=== PATIENT | female | born 1950 | race Caucasian/White ===

== ENCOUNTER 2018-08-26 10:03 | Day surgery (SDC) | payer MEDICARE, BC ==
[2018-08-26] MEDS ORDERED: Midazolam HCl 2 mg/2 ml Vial ONE (11:32)
[2018-08-26] MEDS ORDERED: PROPOFOL 200 MG/20 ML VIAL ONE (12:56)
--- NOTE | 2018-08-26 13:32 | MRI ---
BRAIN MRI WITHOUT CONTRAST: INDICATIONS: Paresthesia and pain of the upper extremity. FINDINGS: The ventricular system is normal in size. There is no acute territorial infarction, intracranial mas s effect, or midline shift. There are scattered foci of signal alteration in the bilateral cerebral white matter, nonspecific. No intracranial hemorrhagic susceptibility. There is a partially empty s antonio. Skull base flow voids are patent. IMPRESSION: Nonspecific mild foci of signal abnormality in the bilateral cerebral white matter, most consistent w ith minimal chronic ischemic disease. POS: [facility]
--- NOTE | 2018-08-26 14:51 | MRI ---
MRI CERVICAL SPINE WITHOUT CONTRAST: INDICATIONS: Paresthesia and extremity pain. COMPARISON: None. TECHNIQUE: Multiplanar, multisequence MR images of the cervical spine were obtained without contrast. FINDINGS: There is a partially empty sella. The visualized posterior fossa is unremarkable appearing. The bon e marrow signal intensity appears within normal limits. There is a small hemangioma within the right aspect of T1. There is modic endplate degenerative change at C4-C5. The visualized prevertebral and paravertebral soft tissues appear within normal limits. At C2-C3, there is no appreciable central canal or neural foraminal narrowing. At C3-C4, there is a small central disk protrusion, but no appreciable central canal or neural forami nal narrowing. At C4-C5, there is facet hypertrophy and uncovertebral hypertrophy, inducing mild right neural forami nal narrowing. There is a broad-based bulge that is asymmetric, to the right, causing mild effacemen t of the subarachnoid space, without cord contact. At C5-C6, there is a broad-based bulge and uncovertebral hypertrophy inducing mild ligamentum flavum thickening neural foraminal narrowing and mild central canal narrowing. At C6-C7, there is an [id number]-wp-dmo-right broad-based bulge without appreciable central canal or neural foraminal narrowing. At C7-T1, there is no appreciable central canal or neural foraminal narrowing. IMPRESSION: Mild spondylosis of the cervical spine, most pronounced at C4-C5, C5-C6, and C6-C7. POS: [facility]
== END 2018-08-26 13:40 | disposition home or self-care (01) ==
LOC: SDC/OP 10:03 → EDSTATUS 12:00 → SDC/OP 13:40
PROVIDERS: ATTEND Psychiatry & Neurology Neurology
DX: M47.892 Other spondylosis, cervical region (principal); R20.2 Paresthesia of skin; R51 Headache; M25.552 Pain in left hip; I25.10 Atherosclerotic heart disease of native coronary artery without angina pectoris; E78.00 Pure hypercholesterolemia, unspecified; F41.9 Anxiety disorder, unspecified; F41.0 Panic disorder [episodic paroxysmal anxiety]; F40.240 Claustrophobia; D52.9 Folate deficiency anemia, unspecified; M85.80 Other specified disorders of bone density and structure, unspecified site; Z79.899 Other long term (current) drug therapy; Z88.5 Allergy status to narcotic agent
CPT/HCPCS: 70551; 72141; J2250; J2704

== ENCOUNTER 2018-10-19 12:35 | Outpatient (CLI) | payer MEDICARE, BC | END 2018-10-19 12:36 | disposition home or self-care (01) | LOC: BICMAMMO 12:35 | PROVIDERS: ATTEND Family Medicine | DX: Z12.31 Encounter for screening mammogram for malignant neoplasm of breast (principal); R92.1 Mammographic calcification found on diagnostic imaging of breast | CPT/HCPCS: 77063; 77067 ==

== ENCOUNTER 2022-01-19 09:52 | Outpatient (CLI) | payer MEDICARE, BC | END 2022-01-19 09:53 | disposition home or self-care (01) | LOC: BICMAMMO 09:52 | PROVIDERS: ATTEND Family Medicine | DX: Z12.31 Encounter for screening mammogram for malignant neoplasm of breast (principal) | CPT/HCPCS: 77063; 77067 ==

== ENCOUNTER 2022-07-14 13:13 | Outpatient (CLI) | payer MEDICARE, BC | END 2022-07-14 13:14 | disposition home or self-care (01) | LOC: BICMAMMO 13:13 | PROVIDERS: ATTEND Family Medicine | DX: Z13.820 Encounter for screening for osteoporosis (principal); M85.89 Other specified disorders of bone density and structure, multiple sites; Z78.0 Asymptomatic menopausal state | CPT/HCPCS: 77080 ==

== ENCOUNTER 2023-07-21 12:52 | Outpatient (CLI) | payer MEDICARE, BC | END 2023-07-21 12:53 | disposition home or self-care (01) | LOC: BICMAMMO 12:52 | PROVIDERS: ATTEND Family Medicine | DX: Z12.31 Encounter for screening mammogram for malignant neoplasm of breast (principal); Z91.89 Other specified personal risk factors, not elsewhere classified | CPT/HCPCS: 77063; 77067 ==

== ENCOUNTER 2024-08-09 13:34 | Outpatient (CLI) | payer MEDICARE | END 2024-08-09 13:35 | disposition home or self-care (01) | LOC: BICMAMMO 13:34 | PROVIDERS: ATTEND Family Medicine | DX: Z12.31 Encounter for screening mammogram for malignant neoplasm of breast (principal); M85.851 Other specified disorders of bone density and structure, right thigh; Z78.0 Asymptomatic menopausal state; Z85.828 Personal history of other malignant neoplasm of skin; Z86.018 Personal history of other benign neoplasm | CPT/HCPCS: 77067; 77080 ==

== ENCOUNTER 2025-08-13 13:51 | Outpatient (CLI) | payer MEDICARE | END 2025-08-13 13:52 | disposition home or self-care (01) | LOC: BICMAMMO 13:51 | PROVIDERS: ATTEND Family Medicine | DX: Z12.31 Encounter for screening mammogram for malignant neoplasm of breast (principal); Z85.828 Personal history of other malignant neoplasm of skin | CPT/HCPCS: 77063; 77067 ==